=== PATIENT | female | born 1990 | race Caucasian/White ===

== ENCOUNTER 2017-03-12 08:48 | Emergency (ER) | payer SELFPAY ==
[~2017-03-12] VITALS: Ht 152.4 cm; Wt 75.4 kg
[2017-03-12] MEDS ORDERED: FAMOTIDINE 20 MG TABLET ONE (09:16)
[2017-03-12] MEDS ORDERED: ONDANSETRON ODT 4 MG ONE (09:16)
[2017-03-12] MEDS ORDERED: FAMOTIDINE 20 MG TABLET PO ONE (09:30)
[2017-03-12] MEDS ORDERED: ONDANSETRON ODT 4 MG PO ONE (09:30)
[2017-03-12 09:57] LABS: BLOOD UREA NITROGEN 15 mg/dL (7-18)
[2017-03-12 10:16] LABS: ASPARTATE AMINO TRANSFERASE 11 U/L (15-37)
[2017-03-12 10:22] VITALS: BP 101/54
== END 2017-03-12 11:49 | disposition home or self-care (01) ==
LOC: ED 10:01
DX: Z32.01 Encounter for pregnancy test, result positive (principal); R11.2 Nausea with vomiting, unspecified
CPT/HCPCS: 36415; 80053; 81003; 83690; 84703; 85025; 99284; Q0162

== ENCOUNTER 2017-04-10 17:01 | Emergency (ER) | payer MEDICAID ==
[~2017-04-10] VITALS: Ht 152.4 cm; Wt 75.0 kg
[2017-04-10] MEDS ORDERED: ONDANSETRON ODT 4 MG ONE (17:11)
[2017-04-10] MEDS ORDERED: SODIUM CHLORIDE 0.9% 1,000ML IVBOLUS ONE (17:30)
[2017-04-10] MEDS ORDERED: ONDANSETRON ODT 4 MG PO ONE (17:30)
[2017-04-10] MEDS ORDERED: SODIUM CHLORIDE FLUSH 10ML SYR IVF ONE (17:30)
[2017-04-10 17:51] LABS: ASPARTATE AMINO TRANSFERASE 12 U/L (15-37); BLOOD UREA NITROGEN 15 mg/dL (7-18)
[2017-04-10 19:50] VITALS: BP 134/78
== END 2017-04-10 19:57 | disposition home or self-care (01) ==
LOC: ED 19:50
DX: O21.0 Mild hyperemesis gravidarum (principal); Z3A.21 21 weeks gestation of pregnancy
CPT/HCPCS: 36415; 80053; 81003; 84702; 85025; 96360; 99284; J7030; Q0162

== ENCOUNTER 2017-05-06 05:34 | Emergency (ER) | payer MEDICAID ==
[~2017-05-06] VITALS: Ht 152.4 cm; Wt 75.2 kg
[2017-05-06] MEDS ORDERED: METOCLOPRAMIDE 5 MG/ML, 2ML IVPush ONE (06:00)
[2017-05-06] MEDS ORDERED: METOCLOPRAMIDE 5 MG/ML, 2ML ONE (06:02)
[2017-05-06 06:30] LABS: BLOOD UREA NITROGEN 13 mg/dL (7-18)
[2017-05-06] MEDS ORDERED: SODIUM CHLORIDE FLUSH 10ML SYR IVF ONE (06:30)
[2017-05-06] MEDS ORDERED: SODIUM CHLORIDE 0.9% 1,000ML IVBOLUS ONE ×2 (06:30→07:00)
[2017-05-06 09:04] VITALS: BP 104/62
== END 2017-05-06 09:06 | disposition home or self-care (01) ==
LOC: ED 06:10
DX: O21.0 Mild hyperemesis gravidarum (principal); Z3A.21 21 weeks gestation of pregnancy
CPT/HCPCS: 36415; 80048; 81001; 82040; 85025; 87086; 96361; 96374; 99285; J2765; J7030

== ENCOUNTER 2018-07-13 16:58 | Emergency (ER) | payer MEDICAID, OTHER ==
[~2018-07-13] VITALS: Ht 152.4 cm; Wt 81.0 kg
[2018-07-13 17:06] VITALS: BP 116/76
[2018-07-13] MEDS ORDERED: ONDANSETRON ODT 4 MG PO ONE (17:30)
[2018-07-13 17:34] LABS: BASOPHILS # (AUTO) 0.05 x10^3/uL (0-0.1); BASOPHILS % (AUTO) 1 % (0-1); EOSINOPHILS # (AUTO) 0.03 x10^3/uL (0-0.4); EOSINOPHILS % (AUTO) 0 % (1-7); LYMPHOCYTES # (AUTO) 1.95 x10^3/uL (1-3.4); LYMPHOCYTES % (AUTO) 17 % (22-44); MD NO; MEAN CORPUSCULAR HEMOGLOBIN 26.4 pg (27.0-34.8); MEAN CORPUSCULAR HGB CONC 33.1 g/dL (32.4-35.8); MEAN CORPUSCULAR VOLUME 79.7 fL (80-100); MEAN PLATELET VOLUME 9.4 fL (7.4-10.4); MONOCYTES # (AUTO) 0.57 x10^3/uL (0.2-0.8); MONOCYTES % (AUTO) 5 % (2-9); NEUTROPHILS # (AUTO) 9.12 x10^3/uL (1.8-6.8); NEUTROPHILS % (AUTO) 78 % (42-75); PLATELET COUNT 262 x10^3/uL (130-400); RED BLOOD COUNT 4.04 x10^6/uL (3.82-5.3); RED CELL DISTRIBUTION WIDTH 14.5 % (9.6-15.2)
[2018-07-13 17:44] LABS: ALANINE AMINOTRANSFERASE 20 U/L (12-78); ANION GAP 9 mmol/L (5-15); CALCIUM 8.2 mg/dL (8.5-10.1); CHLORIDE 106 mmol/L (98-107); CREATININE 0.59 mg/dL (0.55-1.02)
[2018-07-13] MEDS ORDERED: ONDANSETRON ODT 4 MG ONE (17:44)
[2018-07-13 17:47] LABS: ALKALINE PHOSPHATASE 56 U/L (45-117); BILIRUBIN,TOTAL 0.3 mg/dL (0.2-1.0); TOTAL PROTEIN 7.4 g/dL (6.4-8.2)
[2018-07-13 18:13] LABS: MICROSCOPIC NOT IND
[2018-07-13 18:22] LABS: CULTURE INDICATED? NO
== END 2018-07-13 19:20 | disposition home or self-care (01) ==
LOC: ED 18:21
DX: O21.9 Vomiting of pregnancy, unspecified (principal); O26.892 Other specified pregnancy related conditions, second trimester; R10.9 Unspecified abdominal pain; Z3A.00 Weeks of gestation of pregnancy not specified
CPT/HCPCS: 36415; 76815; 80053; 81003; 85025; 99285; Q0162